=== PATIENT | female | born 1985 | race Caucasian/White ===

== ENCOUNTER 2017-04-13 16:33 | Inpatient (IN) | payer OTHER ==
[2017-04-13 18:00] VITALS: BMI 40.3
--- NOTE | 2017-04-13 21:08 | HP ---
CIWA Score - CIWA Score Nausea/Vomitin-Mild Nausea/No Vomiting Muscle Tremors: 2 Anxiety: 3 Agitation: 2 Paroxysmal Sweats: 2 Orientation: 0-Oriented Tacttile Disturbances: 0-None Auditory Disturbances: 1-Very Mild Visual Disturbances: 1-Very Mild Sensitivity Headache: 2-Mild CIWA-Ar Total Score: 14 Admission ROS S - HPI Chief Complaint: WITHDRAWAL SYMPTOMS Allergies/Adverse Reactions: Allergies Allergy/AdvReac Type Severity Reaction Status Date / Time No Known Allergies Allergy Verified 04/13/17 19:38 History of Present Illness: 31 Y.O. WOMAN WITH A HISTORY OF CRACK-COCAINE, XANAX AND OPIATE DEPENDENCE IS HERE SEEKING DETOX. SHE IS CURRENTLY ENROLLED IN [facility] AND STATES SHE WAS LAST DOSED TODAY AT 130MG OF METHADONE. HAS HAD FREQUENT ADMISSIONS HERE TO DETOX. DOES NOT HAVE A SIGNIFICANT PERIOD CLEAN. Exam Limitations: No Limitations - Ebola screening Have you traveled outside of the country in the last 21 days: No Have you had contact with anyone from an Ebola affected area: No Have you been sick,other than usual withdrawal symptoms: No Do you have a fever: No - Review of Systems Constitutional: Chills, Changes in sleep EENT: reports: No Symptoms Reported Respiratory: reports: No Symptoms reported Cardiac: reports: No Symptoms Reported GI: reports: Nausea : reports: No Symptoms Reported Musculoskeletal: reports: Muscle Pain Integumentary: reports: No Symptoms Reported Neuro: reports: No Symptoms reported Endocrine: reports: No Symptoms Reported Hematology: reports: No Symptoms Reported Psychiatric: reports: Orientated x3, Anxious, Depressed Other Systems: Reviewed and Negative Patient History - Patient Medical History Hx Anemia: No Hx Asthma: No Hx Chronic Obstructive Pulmonary Disease (COPD): No Hx Cancer: No Hx Cardiac Disorders: No Hx Congestive Heart Failure: No Hx Hypertension: No Hx Hypercholesterolemia: No Hx Pacemaker: No HX Cerebrovascular Accident: No Hx Seizures: No Hx Dementia: No Hx Diabetes: No Hx Gastrointestinal Disorders: No Hx Liver Disease: No Hx Genitourinary Disorders: No Hx Sexually Transmitted Disorders: No Hx Renal Disease (ESRD): No Hx Thyroid Disease: No Hx Human Immunodeficiency Virus (HIV): No (TESTED 01/27) Hx Hepatitis C: Yes (RECEIVES ZEPATIER DAILY AT [facility]-LAST DOSED 04/13/17) Hx Depression: Yes Hx Suicide Attempt: No Hx Bipolar Disorder: No Hx Schizophrenia: No - Patient Surgical History Past Surgical History: No Hx Neurologic Surgery: No Hx Cataract Extraction: No Hx Cardiac Surgery: No Hx Lung Surgery: No Hx Breast Surgery: No Hx Breast Biopsy: No Hx Abdominal Surgery: No Hx Appendectomy: No Hx Cholecystectomy: No Hx Genitourinary Surgery: No Hx Section: No Hx Orthopedic Surgery: No Hx Hysterectomy: No Anesthesia Reaction: No - PPD History Previous Implant?: Yes Documented Results: Negative w/proof Date: 12/26/15 Results: 0 mm PPD to be Administered?: Yes - Reproductive History Patient is a Female of Child Bearing Age (11 -55 yrs old): Yes Last Menstrual Period: 03/29/17 Patient : No - Smoking Cessation Smoking history: Current every day smoker Have you smoked in the past 12 months: Yes Aproximately how many cigarettes per day: 20 Cigars Per Day: 0 Hx Chewing Tobacco Use: No Initiated information on smoking cessation: Yes 'Breaking Loose' booklet given: 04/13/17 - Substance & Tx. History Hx Alcohol Use: No Hx Substance Use: Yes Substance Use Type: Cocaine, Heroin, Tranquilizers Hx Substance Use Treatment: Yes (DETOX:12/2015 ) - Substances Abused Alprazolam (Xanax) Route: Oral Frequency: Daily Amount used: 8mg Age of first use: 23 Date of Last Use: 04/12/17 Heroin Route: Injection Frequency: Daily Amount used: 10 bags Age of first use: 25 Date of Last Use: 04/13/17 Crack Route: Smoking Frequency: Daily Amount used: 3 bags Age of first use: 28 Date of Last Use: 04/13/17 Family Disease History - Family Disease History Family Disease History: [place]: Grandparent, Other: Mother (OPIOID DEPENDENCE) Admission Physical Exam BHS - Vital Signs Vital Signs: Vital Signs - 24 hr 04/13/17 17:58 Temperature 97.0 F L Pulse Rate 80 Respiratory 18 Rate Blood Pressure 124/72 - Physical General Appearance: Yes: Disheveled, Obese HEENTM: Yes: Hearing grossly Normal, Normal ENT Inspection, Normocephalic Respiratory: Yes: Chest Non-Tender, Lungs Clear, Normal Breath Sounds, No Respiratory Distress, No Accessory Muscle Use Neck: Yes: No masses,lesions,Nodules, Trachea in good position Breast: Yes: Breast Exam Deferred Cardiology: Yes: Regular Rhythm, Regular Rate Abdominal: Yes: Normal Bowel Sounds, Non Tender Genitourinary: Yes: Other (NO COMPLIANTS REPORTED) Back: Yes: Normal Inspection Musculoskeletal: Yes: Muscle Pain Extremities: Yes: Normal Capillary Refill, Normal Inspection, Normal Range of Motion, Non-Tender Neurological: Yes: Fully Oriented, Alert, Normal Mood/Affect, Normal Response Integumentary: Yes: Normal Color, Dry, Warm Lymphatic: Yes: Within Normal Limits - Diagnostic (1) Opioid dependence on agonist therapy Current Visit: Yes Status: Chronic (2) Cannabis dependence Current Visit: Yes Status: Chronic (3) Cocaine dependence Current Visit: Yes Status: Chronic (4) Hepatitis C Current Visit: Yes Status: Chronic Qualifiers: Viral hepatitis chronicity: chronic Hepatic coma status: without hepatic coma Qualified Code(s): B18.2 - Chronic viral hepatitis C (5) Nicotine dependence Current Visit: Yes Status: Chronic Qualifiers: Nicotine product type: cigarettes Substance use status: uncomplicated Qualified Code(s): F17.210 - Nicotine dependence, cigarettes, uncomplicated (6) Sedative, hypnotic or anxiolytic dependence with withdrawal, uncomplicated Current Visit: Yes Status: Chronic (7) Restless legs Current Visit: No Status: Suspected Cleared for Admission [facility] - Detox or Rehab [facility] Level of Care: Medically Managed Detox Regimen/Protocol: Valium [facility] Breath Alcohol Content Breath Alcohol Content: 0 Urine Pregancy Test - Result Urine Test Results: Negative- NO Line Present Urine Drug Screen - Results Drug Screen Negative: No Urine Drug Screen Results: DIMITRI-Cocaine, OPI-Opiates, BZO-Benzodiazepines, MTD- Methadone, TCA-Tricyclic Antidepress
[2017-04-13] MEDS ORDERED: MAG HYDROX/AL HYDROX/SIMETH 30 ML UNIT-DOSE CUP PO PRN (21:19)
[2017-04-13] MEDS ORDERED: ACETAMINOPHEN 325 MG TABLET (FP) PO PRN (21:19)
[2017-04-13] MEDS ORDERED: LOPERAMIDE HCL 2 MG CAPSULE PO PRN (21:19)
[2017-04-13] MEDS ORDERED: guaiFENesin/D-METHORPHAN HB 10 ML UNIT-DOSE CUPS PO PRN (21:19)
[2017-04-13] MEDS ORDERED: MAGNESIUM CITRATE 300 ML BOTTLE PO PRN (21:19)
[2017-04-13] MEDS ORDERED: NICOTINE POLACRILEX 2 MG GUM BC PRN (21:19)
[2017-04-13] MEDS ORDERED: P-EPHED 60MG/TRIPROLIDI 2.5MG TABLET PO PRN (21:19)
[2017-04-13] MEDS ORDERED: MAGNESIUM HYDROX 2400MG/30ML ORAL SUSPENSION 30 ML CUP PO PRN (21:19)
[2017-04-13] MEDS ORDERED: IBUPROFEN 400 MG TABLET (FP) PO PRN (21:19)
[2017-04-13] MEDS ORDERED: diazePAM 5 MG TABLET PO ONE (21:19)
[2017-04-13] MEDS ORDERED: MENTHOL/PHENOL 1 EACH UD MM PRN (21:19)
[2017-04-13] MEDS ORDERED: diphenhydrAMINE HCL 50 MG CAPSULE PO PRN (22:06)
[2017-04-13] MEDS: THIAMINE HCL 100 MG TABLET (FP) PO SCH (22:49)
[2017-04-13] MEDS: CYCLOBENZAPRINE HCL 10 MG TABLET (FP) PO PRN (22:49)
[2017-04-13] MEDS: diazePAM 5 MG TABLET PO SCH (22:53)
[2017-04-14 01:27] LABS: URINE APPEARANCE CLOUDY; URINE BILIRUBIN NEGATIVE (NEGATIVE); URINE BLOOD NEGATIVE (NEGATIVE); URINE COLOR AMBER; URINE GLUCOSE (UA) NEGATIVE (NEGATIVE); URINE KETONE NEGATIVE (NEGATIVE); URINE NITRITE NEGATIVE (NEGATIVE); URINE PROTEIN NEGATIVE (NEGATIVE); URINE UROBILINOGEN NEGATIVE mg/dL (0.2-1.0)
[2017-04-14] MEDS: diazePAM 5 MG TABLET PO PRN ×3 (02:50→16:57)
[2017-04-14] MEDS: diazePAM 5 MG TABLET PO SCH ×3 (05:36→22:28)
--- NOTE | 2017-04-14 08:57 | PN ---
S CIWA - CIWA Score Nausea/Vomitin-No Nausea/No Vomiting Muscle Tremors: 3 Anxiety: 4-Mod. Anxious/Guarded Agitation: 3 Paroxysmal Sweats: 3 Orientation: 0-Oriented Tacttile Disturbances: 0-None Auditory Disturbances: 0-None Visual Disturbances: 0-None Headache: 0-None Present CIWA-Ar Total Score: 13 S Progress Note (SOAP) Subjective: Sweating,anxiety,interrupted sleep,restless Objective: 04/14/17 08:56 Vital Signs - 8 hr 04/14/17 04/14/17 03:30 06:00 Temperature 98.1 F Pulse Rate 70 Respiratory 18 18 Rate Blood Pressure 100/59 Laboratory Tests 04/13/17 22:30 Urine Color [place] Urine Appearance Cloudy Urine pH 5.0 Ur Specific [place] 1.025 Urine Protein Negative Urine Glucose (UA) Negative Urine Ketones Negative Urine Blood Negative Urine Nitrite Negative Urine Bilirubin Negative Urine Urobilinogen Negative u/a wnl Assessment: 04/14/17 08:56 Withdrawal sx. Plan: Continue detox
[2017-04-14] MEDS ORDERED: METHADONE HCL 10 MG TABLET PO SCH (09:00)
--- NOTE | 2017-04-14 09:03 | EKG ---
Test Reason : Blood Pressure : / mmHG Vent. Rate : 063 BPM Atrial Rate : 063 BPM P-R Int : 140 ms QRS Dur : 092 ms QT Int : 440 ms P-R-T Axes : 053 029 -08 degrees QTc Int : 450 ms NORMAL SINUS RHYTHM NONSPECIFIC T WAVE ABNORMALITY ABNORMAL ECG NO PREVIOUS ECGS AVAILABLE Confirmed by KIANA RANDLE, AMARI ([id number]) on 04/14/2017 9:02:50 AM Referred By: SOPHIE TORRES Confirmed By:AMARI BRUNO MD
[2017-04-14] MEDS ORDERED: METHADONE HCL 40 MG DISPERSABLE TABLET ONE (09:58)
[2017-04-14] MEDS ORDERED: METHADONE HCL 10 MG TABLET ONE (09:59)
[2017-04-14] MEDS: METHADONE 120 MG, METHADONE 10 MG PO SCH (10:19)
[2017-04-14] MEDS: PRENATAL VITAMINS W/ FOLIC ACID TABLET (FP) PO SCH (10:19)
[2017-04-14] MEDS: NICOTINE 21 MG/24 HOURS TOPICAL PATCH TD SCH (10:21)
[2017-04-14] MEDS: CYCLOBENZAPRINE HCL 10 MG TABLET (FP) PO PRN ×2 (10:24→22:30)
[2017-04-14 10:28] LABS: MCH 29.5 pg (25.7-33.7); MCHC 33.9 g/dl (32.0-36.0); MEAN CELL VOLUME 87.1 fl (80-96); MEAN PLT VOLUME 9.1 fl (7.5-11.1); PLATELET COUNT 134 K/MM3 (134-434); RDW 13.5 % (11.6-15.6); WHITE BLOOD COUNT 7.7 K/mm3 (4.0-10.0)
[2017-04-14 10:34] LABS: ALBUMIN 2.9 g/dl (3.4-5.0); ALK PHOS 80 U/L (45-117); ANION GAP 4 (8-16); BILIRUBIN,TOTAL 0.3 mg/dL (0.2-1.0); CALCIUM 8.4 mg/dL (8.5-10.1); CO2 30 mmol/L (21-32); CREATININE 0.9 mg/dL (0.55-1.02); GLUCOSE,RANDOM 100 mg/dL (74-106); SGOT/AST 10 U/L (15-37); SGPT/ALT 20 U/L (12-78); TOT PROT 6.1 g/dl (6.4-8.2)
[2017-04-14 11:11] LABS: URINE LEUK ESTERASE Negative (NEGATIVE)
[2017-04-14] MEDS: PATIENT'S OWN MEDICATION (NON-FORMULARY) (Elbasvir/Grazoprevir [Zepatier 50-100 Mg Tablet] PO SCH (12:19)
--- NOTE | 2017-04-14 17:02 | CONSULT ---
[facility] Psychiatric Consult - Data Date of interview: 04/14/17 Admission source: [facility] Identifying data: Another admission to [facility] for this 31 y/o female seeking detox treatment on for xanax,heroin and cocaine (crack) dependence.Patient is single without children,domiciled,unemployed and dependent on relatives for material support. Substance Abuse History: Discussed in this session.Patient confirmed this [facility] report : Smoking history: Current every day smoker. Have you smoked in the past 12 months: Yes. Aproximately how many cigarettes per day: 20. Cigars Per Day: 0. Hx Chewing Tobacco Use: No. Initiated information on smoking cessation : Yes. 'Breaking Loose' booklet given: 04/13/17. - Substance & Tx. History. Hx Alcohol Use: No. Hx Substance Use: Yes. Substance Use Type: Cocaine, Heroin , Tranquilizers. Hx Substance Use Treatment: Yes (DETOX:12/2015 ). - Substances Abused. Alprazolam (Xanax). Route: Oral. Frequency: Daily. Amount used: 8mg. Age of first use: 23. Date of Last Use: 04/12/17. Heroin. Route: Injection. Frequency: Daily. Amount used: 10 bags. Age of first use: 25. Date of Last Use: 04/13/17. Crack. Route: Smoking. Frequency: Daily. Amount used: 3 bags. Age of first use: 28. Date of Last Use : 04/13/17 Medical History: Hepatitis C. Psychiatric History: Patient denies history of psychiatric hospitalizations.First contact with mental health providers (2014).Diagnosed with MDD in the past ([facility]).Patient used to be prescribed antidepressants and anxiolytic medications by primary care providers.Never adherent to care.Ms Mcdonald endorses complaint of insomnia and she requests seroquel at bedtime.No reported history of suicide attempts. Physical/Sexual Abuse/Trauma History: Patient denies. Additional Comment: Urine Drug Screen Results: DIMITRI-Cocaine, OPI-Opiates, BZO- Benzodiazepines, MTD-Methadone, TCA-Tricyclic Antidepressant .Noted. Mental Status Exam - Mental Status Exam Alert and Oriented to: Time, Place, Person Cognitive Function: Good Patient Appearance: Well Groomed (overweight) Mood: Withdrawn, Hopeful Affect: Mood Congruent Patient Behavior: Fatigued, Appropriate, Cooperative Speech Pattern: Clear, Appropriate Voice Loudness: Normal Thought Process: Goal Oriented Thought Disorder: Not Present Hallucinations: Denies Suicidal Ideation: Denies Homicidal Ideation: Denies Insight/Judgement: Poor Sleep: Poorly, Difficulty falling asleep Appetite: Good Muscle strength/Tone: Normal Gait/Station: Normal Psychiatric Findings - Problem List ([place] 1, 2,3) (1) Opioid dependence with withdrawal Current Visit: Yes Status: Acute (2) Opioid dependence on agonist therapy Current Visit: Yes Status: Acute (3) Cocaine dependence Current Visit: Yes Status: Acute (4) Sedative, hypnotic or anxiolytic dependence with withdrawal, uncomplicated Current Visit: Yes Status: Acute (5) Nicotine dependence Current Visit: Yes Status: Acute Qualifiers: Nicotine product type: cigarettes Substance use status: uncomplicated Qualified Code(s): F17.210 - Nicotine dependence, cigarettes, uncomplicated (6) Substance induced mood disorder Current Visit: Yes Status: Acute (7) Insomnia Current Visit: Yes Status: Acute - Initial Treatment Plan Initial Treatment Plan: Psychoeducation.Detoxification.Sleep hygiene discussed in session.Seroquel 100 mg po hs (patient's request).Side effects/benefits discussed with the patient.She agrees with this careplan.Observation.
[2017-04-14] MEDS: THIAMINE HCL 100 MG TABLET (FP) PO SCH (22:28)
[2017-04-14] MEDS: QUEtiapine FUMARATE 100 MG TABLET (FP) PO SCH (22:28)
[2017-04-14] MEDS: hydrOXYzine PAMOATE 50 MG CAPSULE (FP) PO PRN (22:28)
[2017-04-15] MEDS ORDERED: METHADONE HCL 40 MG DISPERSABLE TABLET ONE (02:51)
[2017-04-15] MEDS ORDERED: METHADONE HCL 10 MG TABLET ONE (02:51)
[2017-04-15] MEDS: METHADONE 120 MG, METHADONE 10 MG PO SCH (05:21)
[2017-04-15] MEDS: diazePAM 5 MG TABLET PO PRN ×3 (05:21→17:03)
[2017-04-15] MEDS: CYCLOBENZAPRINE HCL 10 MG TABLET (FP) PO PRN ×2 (08:45→22:20)
[2017-04-15] MEDS: diazePAM 5 MG TABLET PO SCH ×2 (10:14→22:20)
[2017-04-15] MEDS: PRENATAL VITAMINS W/ FOLIC ACID TABLET (FP) PO SCH (10:14)
[2017-04-15] MEDS: hydrOXYzine PAMOATE 50 MG CAPSULE (FP) PO PRN (10:16)
[2017-04-15] MEDS: NICOTINE 21 MG/24 HOURS TOPICAL PATCH TD SCH (10:17)
[2017-04-15] MEDS: PATIENT'S OWN MEDICATION (NON-FORMULARY) (Elbasvir/Grazoprevir [Zepatier 50-100 Mg Tablet] PO SCH (11:06)
--- NOTE | 2017-04-15 12:08 | PN ---
S CIWA - CIWA Score Nausea/Vomitin-No Nausea/No Vomiting Muscle Tremors: 2 Anxiety: 2 Agitation: 2 Paroxysmal Sweats: 1-Minimal Palms Moist Orientation: 0-Oriented Tacttile Disturbances: 0-None Auditory Disturbances: 0-None Visual Disturbances: 0-None Headache: 0-None Present CIWA-Ar Total Score: 7 BHS Progress Note (SOAP) Subjective: tremor sweating anxiety unable to sleep throughout the night Objective: 04/15/17 12:09 Vital Signs Temperature 98.6 F 04/15/17 09:44 Pulse Rate 75 04/15/17 09:44 Respiratory Rate 18 04/15/17 09:44 Blood Pressure 112/62 04/15/17 09:44 O2 Sat by Pulse Oximetry (%) Laboratory Last Values WBC 7.7 K/mm3 (4.0-10.0) 04/14/17 08:20 RBC 4.17 M/mm3 (3.60-5.2) 04/14/17 08:20 Hgb 12.3 GM/dL (10.7-15.3) D 04/14/17 08:20 Hct 36.3 % (32.4-45.2) 04/14/17 08:20 MCV 87.1 fl (80-96) 04/14/17 08:20 MCH 29.5 pg (25.7-33.7) 04/14/17 08:20 MCHC 33.9 g/dl (32.0-36.0) 04/14/17 08:20 RDW 13.5 % (11.6-15.6) 04/14/17 08:20 Plt Count 134 K/MM3 (134-434) 04/14/17 08:20 MPV 9.1 fl (7.5-11.1) D 04/14/17 08:20 Sodium 143 mmol/L (136-145) 04/14/17 08:20 Potassium 4.0 mmol/L (3.5-5.1) 04/14/17 08:20 Chloride 109 mmol/L (98-107) H 04/14/17 08:20 Carbon Dioxide 30 mmol/L (21-32) 04/14/17 08:20 Anion Gap 4 (8-16) L 04/14/17 08:20 BUN 12 mg/dL (7-18) 04/14/17 08:20 Creatinine 0.9 mg/dL (0.55-1.02) 04/14/17 08:20 Creat Clearance w eGFR > 60 (>60) 04/14/17 08:20 Random Glucose 100 mg/dL (74-106) 04/14/17 08:20 Calcium 8.4 mg/dL (8.5-10.1) L 04/14/17 08:20 Total Bilirubin 0.3 mg/dL (0.2-1.0) D 04/14/17 08:20 AST 10 U/L (15-37) L D 04/14/17 08:20 ALT 20 U/L (12-78) D 04/14/17 08:20 Alkaline Phosphatase 80 U/L (45-117) 04/14/17 08:20 Total Protein 6.1 g/dl (6.4-8.2) L D 04/14/17 08:20 Albumin 2.9 g/dl (3.4-5.0) L D 04/14/17 08:20 Urine Color Munira 04/13/17 22:30 Urine Appearance Cloudy 04/13/17 22:30 Urine pH 5.0 (5.0-8.0) 04/13/17 22:30 Ur Specific [place] 1.025 (1.001-1.035) 04/13/17 22:30 Urine Protein Negative (NEGATIVE) 04/13/17 22:30 Urine Glucose (UA) Negative (NEGATIVE) 04/13/17 22:30 Urine Ketones Negative (NEGATIVE) 04/13/17 22:30 Urine Blood Negative (NEGATIVE) 04/13/17 22:30 Urine Nitrite Negative (NEGATIVE) 04/13/17 22:30 Urine Bilirubin Negative (NEGATIVE) 04/13/17 22:30 Urine Urobilinogen Negative mg/dL (0.2-1.0) 04/13/17 22:30 Ur Leukocyte Esterase Negative (NEGATIVE) 04/13/17 22:30 RPR Titer Nonreactive (NONREACTIVE) 04/14/17 08:20 lab noted Assessment: 04/15/17 12:09 withdrawal sx Plan: continue detox
[2017-04-15] MEDS: QUEtiapine FUMARATE 100 MG TABLET (FP) PO SCH (22:20)
[2017-04-15] MEDS: THIAMINE HCL 100 MG TABLET (FP) PO SCH (22:20)
[2017-04-16] MEDS ORDERED: METHADONE HCL 10 MG TABLET ONE (05:03)
[2017-04-16] MEDS ORDERED: METHADONE HCL 40 MG DISPERSABLE TABLET ONE (05:03)
[2017-04-16] MEDS: METHADONE 120 MG, METHADONE 10 MG PO SCH (06:11)
[2017-04-16] MEDS: CYCLOBENZAPRINE HCL 10 MG TABLET (FP) PO PRN ×2 (06:13→22:06)
[2017-04-16] MEDS: diazePAM 5 MG TABLET PO PRN ×4 (06:13→18:34)
[2017-04-16] MEDS: diazePAM 5 MG TABLET PO SCH ×2 (09:02→22:06)
[2017-04-16] MEDS: PRENATAL VITAMINS W/ FOLIC ACID TABLET (FP) PO SCH (10:11)
[2017-04-16] MEDS: NICOTINE 21 MG/24 HOURS TOPICAL PATCH TD SCH (10:11)
[2017-04-16] MEDS: PATIENT'S OWN MEDICATION (NON-FORMULARY) (Elbasvir/Grazoprevir [Zepatier 50-100 Mg Tablet] PO SCH (10:11)
--- NOTE | 2017-04-16 10:54 | PN ---
BHS Progress Note (SOAP) Subjective: sweats interrupted sleep Objective: 04/16/17 10:53 Vital Signs Temperature 98.2 F 04/16/17 09:26 Pulse Rate 85 04/16/17 09:26 Respiratory Rate 20 04/16/17 09:26 Blood Pressure 134/78 04/16/17 09:26 O2 Sat by Pulse Oximetry (%) aaox3 ambulating no acute distress Assessment: 04/16/17 10:54 mild withdrawal sx Plan: continue detox increase fluids d/c in am
[2017-04-16] MEDS: QUEtiapine FUMARATE 100 MG TABLET (FP) PO SCH (22:06)
[2017-04-16] MEDS: THIAMINE HCL 100 MG TABLET (FP) PO SCH (22:06)
[2017-04-16] MEDS: hydrOXYzine PAMOATE 50 MG CAPSULE (FP) PO PRN (23:47)
[2017-04-17] MEDS ORDERED: METHADONE HCL 40 MG DISPERSABLE TABLET ONE (04:19)
[2017-04-17] MEDS ORDERED: METHADONE HCL 10 MG TABLET ONE (04:20)
[2017-04-17] MEDS: METHADONE 120 MG, METHADONE 10 MG PO SCH (05:37)
[2017-04-17] MEDS: hydrOXYzine PAMOATE 50 MG CAPSULE (FP) PO PRN (05:39)
[2017-04-17] MEDS: CYCLOBENZAPRINE HCL 10 MG TABLET (FP) PO PRN (05:39)
--- NOTE | 2017-04-17 08:45 | DS ---
[facility] Detox Discharge Summary Admission Date: 04/13/17 Discharge Date: 04/17/17 - History Present History: Cannabis Dependence, Opioid Dependence - Physical Exam Results Vital Signs: Vital Signs Temperature 97.9 F 04/17/17 05:58 Pulse Rate 72 04/17/17 05:58 Respiratory Rate 18 04/17/17 05:58 Blood Pressure 108/54 04/17/17 05:58 O2 Sat by Pulse Oximetry (%) - Treatment Hospital Course: Detox Protocol Followed, Detoxed Safely, Responded well, Discharged Condition Good, Rehab Referral Accepted - Medication Discharge Medications: Ambulatory Orders Elbasvir/Grazoprevir [Zepatier 50-100 mg Tablet] 1 each PO DAILY 04/13/17 Quetiapine Fumarate [Seroquel] 100 mg PO HS #30 tablet 04/14/17 - Diagnosis (1) Cocaine dependence Current Visit: Yes Status: Chronic (2) Insomnia Current Visit: Yes Status: Acute (3) Nicotine dependence Current Visit: Yes Status: Chronic Qualifiers: Nicotine product type: cigarettes Substance use status: uncomplicated Qualified Code(s): F17.210 - Nicotine dependence, cigarettes, uncomplicated (4) Opioid dependence on agonist therapy Current Visit: Yes Status: Acute (5) Opioid dependence with withdrawal Current Visit: Yes Status: Chronic (6) Sedative, hypnotic or anxiolytic dependence with withdrawal, uncomplicated Current Visit: Yes Status: Chronic (7) Substance induced mood disorder Current Visit: Yes Status: Acute (8) Cannabis dependence Current Visit: Yes Status: Chronic (9) Hepatitis C Current Visit: Yes Status: Chronic Qualifiers: Viral hepatitis chronicity: chronic Hepatic coma status: without hepatic coma Qualified Code(s): B18.2 - Chronic viral hepatitis C (10) Anxiety and depression Current Visit: No Status: Acute (11) Anxiety Current Visit: No Status: Chronic (12) Depression with anxiety Current Visit: No Status: Chronic (13) Restless legs Current Visit: No Status: Suspected - AMA Did Patient Leave Against Medical Advice: No
[2017-04-17 09:23] VITALS: BP 112/69; PULSE 83; TEMP 97.5
[2017-04-17] MEDS ORDERED: diazePAM 5 MG TABLET PO SCH (10:00)
== END 2017-04-17 09:02 | disposition home or self-care (01) | DRG 776 ==
LOC: YASAS 16:33 → Y6N 19:51
PROVIDERS: ADMIT Internal Medicine; ATTEND Internal Medicine
PROC: HZ2ZZZZ Detoxification Services for Substance Abuse Treatment (ICD-10-PCS; principal; 2017-04-13)
DX: F13.230 Sedative, hypnotic or anxiolytic dependence with withdrawal, uncomplicated (principal); F12.20 Cannabis dependence, uncomplicated; F19.24 Other psychoactive substance dependence with psychoactive substance-induced mood disorder; F41.8 Other specified anxiety disorders; G47.00 Insomnia, unspecified; B18.2 Chronic viral hepatitis C; G25.81 Restless legs syndrome
CPT/HCPCS: 36415; 80053; 81003; 85027; 86593; 93005; 93010